=== PATIENT | female | born 1980 | race Caucasian/White ===

== ENCOUNTER 2020-05-24 22:19 | Emergency (ER) | payer OTHER | END 2020-05-24 23:41 | disposition other institution (70) | LOC: ED 22:19 | DX: Z02.89 Encounter for other administrative examinations (principal) ==

== ENCOUNTER 2020-05-24 22:19 | Emergency (ER) | payer OTHER ==
[~2020-05-24] VITALS: Ht 154.9 cm; Wt 120.2 kg
[2020-05-24 22:23] VITALS: BP 112/63; Ht 154.9 cm; Wt 120.2 kg
== END 2020-05-24 23:41 | disposition other institution (70) ==
LOC: ED 22:19
DX: O23.42 Unspecified infection of urinary tract in pregnancy, second trimester (principal); Z3A.20 20 weeks gestation of pregnancy; Z98.890 Other specified postprocedural states